=== PATIENT | female | born 1995 | race American Indian/Alaskan Native ===

== ENCOUNTER 2017-08-14 16:26 | Emergency (ER) | payer OTHER ==
[2017-08-14 16:43] VITALS: BP 104/59
[2017-08-14 17:17] LABS: Basophils % (Auto) 0.3 % (0.0-1.8); Eosinophils % (Auto) 0.7 % (0.0-4.3); Hematocrit 38.2 % (30.3-42.9); Hemoglobin 12.7 gm/dl (10.1-14.3); Lymphocytes # (Auto) 1.5 K/mm3 (1.2-5.4); Lymphocytes % (Auto) 23.3 % (13.4-35.0); Mean Corpuscular HGB Conc 33 % (30-34); Mean Corpuscular Hemoglobin 29 pg (28-32); Mean Corpuscular Volume 87 fl (79-97); Monocytes # (Auto) 0.4 K/mm3 (0.0-0.8); Monocytes % (Auto) 6.1 % (0.0-7.3); Platelet Count 165 K/mm3 (140-440); Red Blood Count 4.37 M/mm3 (3.65-5.03); Red Cell Distribution Width 13.8 % (13.2-15.2)
[2017-08-14 17:24] LABS: Bilirubin,Urine NEG (Negative); Blood,Urine NEG (Negative); Color,Urine Yellow (Yellow); Mucus,Urine 2+ /HPF
[2017-08-14 17:35] LABS: BUN/Creatinine Ratio 20; Blood Urea Nitrogen 10 mg/dL (7-17); Calcium 8.7 mg/dL (8.4-10.2); Hemolysis Index 3
--- NOTE | 2017-08-14 21:49 | Emergency Department Report ---
ED Abdominal Pain HPI - General Chief Complaint: Abdominal Pain Stated Complaint: ABD PAIN/ Time Seen by Provider: 08/14/17 21:44 Source: patient Mode of arrival: Ambulatory Limitations: No Limitations - History of Present Illness Initial Comments: 22-year-old female comes in complaining of abdominal pain with . She does not verify last menstrual period was 04/11/2017. She denies any vaginal bleeding. She is 2 para 1 miscarriage none. Patient reports that she is having intermittent cramping for several weeks.. She has not started with OB. She has not started vitamins. She is not taking any medication. SHe denies nausea, vomiting or vaginal bleeding. MD Complaint: abdominal pain Severity scale (0 -10): 7 Quality: cramping Consistency: intermittent Associated Symptoms: denies other symptoms - Related Data Previous Rx's Medication Instructions Recorded Last Taken Type Pnv No.95/Ferrous Fum/Folic AC 1 each PO QDAY #90 tablet 08/14/17 Unknown Rx [Prenavite Tablet] Allergies Allergy/AdvReac Type Severity Reaction Status Date / Time No Known Allergies Allergy Unverified 08/14/17 16:38 ED Review of Systems ROS: Stated complaint: ABD PAIN/ Other details as noted in HPI Respiratory: denies: cough, shortness of breath, wheezing Cardiovascular: denies: chest pain, palpitations Endocrine: no symptoms reported Gastrointestinal: abdominal pain (cramping). denies: nausea, vomiting Genitourinary: denies: urgency, dysuria, discharge Musculoskeletal: denies: back pain, joint swelling, arthralgia Skin: denies: rash, lesions Neurological: denies: headache, weakness, paresthesias Psychiatric: denies: anxiety, depression ED Past Medical Hx - Past Medical History Previous Medical History?: Yes Additional medical history: vaginal delivery 09-12-2014 - Surgical History Past Surgical History?: No - Social History Smoking Status: Current Some Day Smoker Substance Use Type: Marijuana - Medications Home Medications: Home Medications Medication Instructions Recorded Confirmed Last Taken Type Pnv No.95/Ferrous Fum/Folic AC 1 each PO QDAY #90 tablet 08/14/17 Unknown Rx [Prenavite Tablet] ED Physical Exam - General Limitations: No Limitations General appearance: alert, in no apparent distress - Head Head exam: Present: atraumatic, normocephalic - Eye Eye exam: Present: normal appearance - Respiratory Respiratory exam: Present: normal lung sounds bilaterally. Absent: respiratory distress - Cardiovascular Cardiovascular Exam: Present: regular rate, normal rhythm. Absent: systolic murmur, diastolic murmur, rubs, gallop - GI/Abdominal GI/Abdominal exam: Present: soft, normal bowel sounds ED Course Vital Signs 08/14/17 16:38 Temperature 97.9 F Pulse Rate 93 H Respiratory 20 Rate Blood Pressure 104/59 O2 Sat by Pulse 97 Oximetry ED Medical Decision Making - Lab Data Result diagrams: 08/14/17 17:06 08/14/17 17:06 - Medical Decision Making Patient has been seen by this provider fast track. Patient complains of intermittent abdominal cramping while . Patient is not started with OB. Discussed the patient op place her on vitamins she can take Tylenol only for pain. As well as I refer her to the equipment detailer. Patient has had ultrasound which shows a single live intrauterine gestation estimated gestational age of 17 weeks 6 days for an estimated date of confinement of 01/16/2018. Critical care attestation.: If time is entered above; I have spent that time in minutes in the direct care of this critically ill patient, excluding procedure time. ED Disposition Clinical Impression: with 17 completed weeks gestation Disposition: DC-01 TO HOME OR SELFCARE Is pt being admited?: No Does the pt Need Aspirin: No Condition: Stable Instructions: Abdominal Pain (ED) Additional Instructions: Please take vitamins every day as prescribed. You can only take Tylenol for pain. Please follow-up with an OB to start your care. Prescriptions: Pnv No.95/Ferrous Fum/Folic AC [Prenavite Tablet] 1 each PO QDAY #90 tablet Referrals: GIO JANSEN MD [Primary Care Provider] - 3-5 Days GENOVEVA VILLA MD [Staff Physician] - 3-5 Days JEFFERSON ESCALANTE MD [Staff Physician] - 3-5 Days JEREMIAS ESCALANTE MD [Staff Physician] - 3-5 Days ALYCE PARIKH MD [Staff Physician] - 3-5 Days RANDA OTERO MD [Staff Physician] - 3-5 Days ELSY ANGLIN MD [Staff Physician] - 3-5 Days SILVA APODACA DO [Staff Physician] - 3-5 Days LAW GOMEZ MD [Staff Physician] - 3-5 Days Forms: Work/School Release Form(ED), Accompanied Note
--- NOTE | 2017-08-19 14:14 | Ultrasound Report ---
FINAL REPORT EXAM: US OB > = 14 WEEKS FETUS HISTORY: preg LMP 04/11/17 abd pain, TECHNIQUE: Real-time sonography was performed of the gravid uterus and images are submitted for interpretation. Detailed anatomic survey was not performed. PRIORS: None. FINDINGS: There is a grossly normal-appearing fetus in the uterus in a cephalic presentation. The placenta is posterior and the os is clear. There is a normal amount of amniotic fluid. The cervix is long and closed measuring 3.5 cm. The heart is beating at a rate of 151 beats per minute. Biometric measurements give an estimated gestational age of 17 weeks 6 days. IMPRESSION: Single, live intrauterine gestation, estimated gestational age 17 weeks 6 days for an estimated date of confinement of 01/16/2018.
== END 2017-08-14 21:55 | disposition home or self-care (01) ==
LOC: ED 16:26
DX: O26.892 Other specified pregnancy related conditions, second trimester (principal); R10.9 Unspecified abdominal pain; F17.200 Nicotine dependence, unspecified, uncomplicated; F12.10 Cannabis abuse, uncomplicated; Z3A.17 17 weeks gestation of pregnancy
CPT/HCPCS: 36415; 76805; 80048; 81001; 84702; 85025; 86900; 86901; 99284